=== PATIENT | male | born 1945 | race Caucasian/White ===

== ENCOUNTER → 2020-12-12 | Outpatient (CLI) | payer MEDICARE, OTHER ==
[~2020-12-12] MED LIST: ASPIR-LOW81 MG PO; ASPIRIN325 MG PO; CINNAMON500 MG PO; FISH OIL 1,0001 EACH PO; FLOMAX0.4 MG PO; IMDUR ER TAB 3030 MG PO; LIPITOR TAB 1010 MG PO; NITROSTAT0.4 MG SL; NORVASC 5 MG TAB5 MG PO; PLAVIX 75 MG TA75 MG PO; PRINIVIL10 MG PO; TENORMIN 25 MG25 MG PO; THERAGRAN M TAB1 EA PO; VITAMIN D 11000 UNIT PO; VITAMIN E400 UNI2 PO; ZANTAC150 MG PO
== END ==
LOC: HEART 5 13:12
DX: I25.10 Atherosclerotic heart disease of native coronary artery without angina pectoris (principal); R00.1 Bradycardia, unspecified; I27.20 Pulmonary hypertension, unspecified; I11.9 Hypertensive heart disease without heart failure; I08.1 Rheumatic disorders of both mitral and tricuspid valves; Z95.1 Presence of aortocoronary bypass graft
CPT/HCPCS: 93306

== ENCOUNTER → 2020-12-25 | Outpatient (CLI) | payer MEDICARE, OTHER | LOC: NM 12-24 13:00 → HEART 5 12-24 13:00 → NM 11:00 | DX: I25.10 Atherosclerotic heart disease of native coronary artery without angina pectoris (principal); R93.1 Abnormal findings on diagnostic imaging of heart and coronary circulation | CPT/HCPCS: 78472; A9560; J1642 ==

== ENCOUNTER → 2021-05-28 | Outpatient (CLI) | payer MEDICARE, OTHER | LOC: HEART 5 13:16 | DX: I50.22 Chronic systolic (congestive) heart failure (principal); R94.30 Abnormal result of cardiovascular function study, unspecified; I08.1 Rheumatic disorders of both mitral and tricuspid valves; I27.20 Pulmonary hypertension, unspecified | CPT/HCPCS: 93306 ==